=== PATIENT | male | born 1990 ===

== ENCOUNTER 2024-04-10 06:32 | Emergency (ER) | payer SELFPAY ==
[2024-04-10] VITALS (7 sets, daily range): BP systolic 98–109; BP diastolic 63–78; BMI 22.4
--- NOTE | 2024-04-10 06:45 | ED.GENMED ---
History of Present Illness
General
Chief Complaint: Abdominal Symptoms
Source: patient
Exam Limitations: none
Time Seen by Provider: 04/10/24 06:45
Nursing documentation reviewed up to this point in time: agreed with
History of Present Illness
History of Present Illness:
33-year-old male with no reported chronic medical issues presents to the ER for evaluation of flulike illness. Patient reports onset of symptoms a few days ago and have been constant since that time. He reports fever and chills, myalgias,
headache, cough, sore throat, nausea and vomiting. Came to the ER for evaluation. Denies any chest pain, abdominal pain. No shortness of breath. Denies any other complaints. He does report sick contact with COVID recently.
Review of Systems
Review of Systems
All Other Systems: ROS reviewed and negative except as documented in HPI and ROS
Constitutional: Reports fever, fatigue and chills
EENT: Reports sore throat and runny nose
Respiratory: Reports cough; Denies trouble breathing
Cardiac: Denies chest pain
ABD/GI: Reports nausea and vomiting; Denies abdominal pain or diarrhea
: Denies flank pain
Musculoskeletal: Reports muscle pain (Myalgias)
Neurological: Reports headache
Phy Exam
Physical Exam
Physical Exam:
General: Awake, alert, oriented x3; no acute distress
Head: Normocephalic, atraumatic
Eyes: Conjunctiva normal, sclera
Throat: Airway intact, dry mucous membranes
Neck: Trachea midline, supple without meningismus
Lungs: Clear to auscultation bilaterally, no wheezing, rales, rhonchi; occasional cough
Heart: Tachycardia with regular rhythm, no murmurs, gallops, or rubs
Abd: Soft, non distended, nontender
Neuro: No gross deficit
Skin: no rash
Extremities: No edema in extremities, warm and well-perfused
Scores
Heart Failure Risk
Heart Failure Risk Score: Not Applicable
Heart Score for Chest Pain Patients
STEMI patient?: Not applicable
Withdrawal Assessment of Alcohol
Withdrawal Assessment Completed?: Not applicable
Course
Orders/Labs/Results
Orders:
Orders
04/10/24 00:00
Acetaminophen [Tylenol] 500 mg PO Q6HPRN
Ibuprofen [Motrin] 400 mg PO Q6HPRN
Ondansetron Orally Disint [Zofran Odt (Orally Disintegrating)] 4 mg PO Q8HPRN
04/10/24 06:40
COVID-19 Antigen Urgent
Source: Nasal Swab
Influenza A+B Rapid Molecular Urgent
IMELDA Source: Nasal Swab
Specimen Description:
04/10/24 06:44
0.9% Sodium Chloride 1000 ml [Nss] 1,000 ml IV BOLUS
Acetaminophen [Tylenol] 1,000 mg .ROUTE .STK-MED ONE
Acetaminophen [Tylenol] 1,000 mg PO NOW STA
Ondansetron Injectable [Zofran] 4 mg IV NOW STA
04/10/24 06:48
CR Chest - 2 Views Urgent
Comment:
Reason For Exam: cough, fever
04/10/24 07:01
CPK [Creatine Phosphokinase] Urgent
Complete Blood Count/With Diff Urgent
Comprehensive Metabolic Panel Urgent
04/10/24 07:41
Dexamethasone Sod Phosphate [Decadron] 10 mg IV NOW STA
Ketorolac [Toradol] 15 mg IV NOW STA
04/10/24 07:53
0.9% Sodium Chloride 500 ml [Nss] 500 ml IV BOLUS
04/10/24 08:45
Case Management Consult ONCE
Case Management Consult: Discharge Planning
Abnormal Lab Results
04/10/24 04/10/24
06:40 07:01
Absolute Lymphs (auto) 0.3 L 10^3/uL
(1.2-3.4)
Absolute Monos (auto) 0.8 H 10^3/uL
(0.1-0.6)
Neutrophils % 75.5 H %
(42.2-75.2)
Lymphocytes % 5.5 L %
(20.5-51.1)
Monocytes % 17.6 H %
(1.7-9.3)
Sodium 134 L mmol/L
(135-145)
Glucose 114 H mg/dl
(70-99)
SARS-CoV-2 Antigen Positive A
(Negative)
04/10/24 07:01
04/10/24 07:01
Vital Signs
Initial and Last Documented VS:
Initial Vital Signs
Temp Pulse Resp BP Pulse Ox
37.7 C 95 24 109/78 100
04/10/24 06:36 04/10/24 06:36 04/10/24 06:36 04/10/24 06:36 04/10/24 06:36
Last Documented Vital Signs
Temp Pulse Resp BP Pulse Ox
37.3 C 82 22 98/68 98
04/10/24 10:11 04/10/24 09:07 04/10/24 09:07 04/10/24 09:07 04/10/24 08:56
MDM/Problems Addressed
Differential Diagnosis Includes:
Flu, COVID, pneumonia
MDM/Problems Addressed:
33-year-old male presents with flulike illness for the past few days. Vitals and exam as above. Will check labs including a CBC and a CMP, CPK. Check for COVID and flu. Check chest x-ray to rule out pneumonia. Will provide fluids, symptom
control. Reassess after the above.
Labs reviewed: CBC and CMP no clinically significant abnormalities. Patient is positive for COVID, negative for influenza. Suspect this is the etiology of his symptoms. Awaiting results of chest x-ray. Heart rate has normalized patient appears
well on reassessment.
Chest x-ray reviewed by me shows no pneumonia. Patient has had stable vital signs, symptoms improved with treatment in the ER. Stable for discharge will prescribe Zofran as needed also advised to take Tylenol/Motrin as needed. He is homeless; I
discussed the case with case management to help him with obtaining his prescriptions. All questions answered.
*Critical Care Note
Total Time (30-74mins, 75-104mins- exclusive of procedures): Not Applicable
Patient Management
Social determinants of health affecting care: Living situation
ED Attending Note
-
Portions of this chart may have been created with voice recognition software.� Occasional wrong word or��sound alike� substitutions may have occurred due to the inherent limitations of voice recognition software.
Discharge Plan
Departure
Patient Disposition: Home (Routine Discharge)
Date of Disposition: 04/10/24
Time of Disposition: 08:57
Patient with high blood pressure during this ER visit?: No
Discharge Problem:
COVID-19, Acute dehydration
Instructions: Dehydration, Adult (DC), COVID-19 - ED discharge instructions
Prescriptions:
New
ondansetron 4 mg tablet,disintegrating
4 mg PO TIDPRN PRN (Reason: nausea/vomiting) Qty: 20 0RF
Activity Restrictions/Additional Instructions:
Thank you for visiting the Emergency Department at [facility].
1. Please schedule a follow up appointment as directed. Call first thing tomorrow morning to make an appointment.
2. If indicated, please take your medications as instructed and indicated on discharge paperwork.
3. If any of your symptoms do not improve, or persist, or become more severe within 6-12 hours, please return to the emergency department for further care.
4. Please return to the emergency department if you develop a headache, neck pain/stiffness, fever greater than 100.4F, chest pain, shortness of breath, persistent nausea, vomiting, slurred speech, difficulty walking, numbness/tingling, weakness,
signs of infection or any other symptoms that are worrisome to you.
Please call [phone] if you have any questions.
Interventions
Interventions:
*Risk Screen - Suicide Last Done: 04/10/24 06:36
*General Assessment Last Done: 04/10/24 09:22
*Neglect/Abuse Screening Last Done: 04/10/24 06:36
*ED COVID-19 Vaccine History Last Done: 04/10/24 06:36
*Nursing Disposition Last Done: 04/10/24 09:30
[facility] Assessment Last Done: 04/10/24 07:06
Discharge Date and Time
Print Language: BURKINAN
[2024-04-10] MEDS: TYLENOL 1000 MG PO (06:46)
[2024-04-10] MEDS: ZOFRAN 4 MG IV (07:02)
[2024-04-10] MEDS: NSS 1000 IV (07:02)
[2024-04-10 07:10] LABS: % Basophils 0.6 % (0-2); % Eosinophils 0.8 % (0-6); % Lymphocytes 5.5 % (20.5-51.1); % Monocytes 17.6 % (1.7-9.3); % Neutrophils 75.5 % (42.2-75.2); Absolute Lymphocytes 0.3 10^3/uL (1.2-3.4); Absolute Monocytes 0.8 10^3/uL (0.1-0.6); Absolute Neutrophils 3.6 10^3/uL (1.4-6.5); Hematocrit 44.2 % (39.0-52.0); Hemoglobin 15.3 g/dL (13.0-18.0); Mean Corp Hgb Conc. 34.6 g/dL (33.0-37.0); Mean Corpuscular Hgb 30.8 pg (27.0-31.0); Mean Corpuscular Volume 89.1 fL (80.0-94.0); Mean Platelet Volume 8.9 fL (7.4-10.4); Nucleated Red Blood Cells % 0 % (-); Platelet Count 196 10^3/uL (130-400); Red Blood Cell Count 4.96 10^6/uL (4.70-6.10); Red Cell Dist. Width 11.9 % (11.5-14.5); White Blood Cell Count 4.8 10^3/uL (4.8-10.8)
[2024-04-10 07:31] LABS: ALT (SGPT) 15 U/L (0-50); AST (SGOT) 24 U/L (17-59); Albumin 4.4 g/dl (3.5-5.0); Alkaline Phosphatase 74 U/L (38-126); Blood Urea Nitrogen 10 mg/dl (9-20); Carbon Dioxide 27 mmol/L (22-30); Chloride 100 mmol/L (98-107); Creatine Phosphokinase 150 U/L (55-170); Estimated Creatinine Clearance 125 ml/min; Glucose 114 mg/dl (70-99); Potassium 4.5 mmol/L (3.5-5.1); Sodium 134 mmol/L (135-145); Total Bilirubin 0.5 mg/dl (0.2-1.3); eGFR > 60.00
[2024-04-10 07:32] LABS: COVID-19 Antigen Positive (Negative)
[2024-04-10] MEDS: DECADRON 10 MG IV (07:50)
[2024-04-10] MEDS: TORADOL 15 MG IV (07:50)
[2024-04-10] MEDS: NSS 500 IV (08:04)
--- NOTE | 2024-04-10 09:17 | CM ---
Addendum entered by Kandy Figueroa RN 04/10/24 09:45:
CM spoke with Meliza Rebeca at the [facility] and she is agreeable to pay for patient's prescriptions through [employer] funds. CM spoke with [employer] volunteer who will attempt to get two nights at [facility]. She will update this CM.
Original Note:
CM spoke with patient and girlfriend in room. Girlfriend who is also homeless stated that she is known to [employer] and has been working with Earlene Pierce regarding housing. CM left message for [employer] to discuss housing and medication assistance.
== END 2024-04-10 09:30 | disposition home or self-care (01) ==
LOC: EMR 06:32
PROVIDERS: Student in an Organized Health Care Education/Training Program; EMERGENCY PHYSICIAN Emergency Medicine
DX: U07.1 COVID-19 (principal); E86.0 Dehydration; R05.9 Cough, unspecified; Z59.00 Homelessness unspecified
CPT/HCPCS: 99284; 71046; 80053; 82550; 85025; 87502; 87811